=== PATIENT | male | born 1995 | race Caucasian/White ===

== ENCOUNTER 2017-01-17 11:39 | Emergency (ER) | payer OTHER ==
[~2017-01-17] VITALS: Ht 177.8 cm; Wt 71.3 kg
[2017-01-17 11:40] VITALS: TEMP 37; Ht 177.8 cm; Wt 71.3 kg
[2017-01-17 12:46] LABS: BASO % 0.6 %; BASO ABS # 0.03 K/uL (0-0.2); COMPLETE YES; EOS % 5.9 %; HEMATOCRIT 40.1 % (42-52); IG% 0.2 %; LYMPH % 28.9 %; LYMPH ABS # 1.51 K/uL (1.2-3.4); MEAN CELL VOLUME 89.7 fL (80-100); MEAN CORPUSCULAR HEMOGLOBIN 31.5 pg (25-34); MEAN CORPUSCULAR HGB CONC 35.2 g/dl (32-36); MEAN PLATELET VOLUME 9.3 fL (7.4-10.4); MONO % 6.3 %; NEUT % 58.1 %; PLATELET COUNT 228 K/uL (130-400); RED BLOOD COUNT 4.47 M/uL (4.7-6.1); WHITE BLOOD COUNT 5.23 K/uL (4.8-10.8)
--- NOTE | 2017-01-17 12:48 | EMERGENCY ROOM VISIT NOTE ---
History Report prepared by Rebekah: Garrett Chan Under the Supervision of: Dr. Eric Elizabeth M.D. First contact with patient: 12:35 Chief Complaint: MENTAL HEALTH EVALUATION Stated Complaint: DEPRESSION History of Present Illness The patient is a 21 year old male who presents to the Emergency Room with complaints of worsening depression that started a few weeks ago. He says that he has been chronically depressed for a couple years, and he has just gotten used to it. The patient went to see a therapist once, but he stopped going. He says he is not on any daily medications. The patient states that he has been self-harming for a couple years. He cuts his arms, and punches himself. He punches his arms, and sometimes his thighs. The patient says that he hit a low point at the end of last week, and decided to call [facility], and went in this morning. He was then referred here for an evaluation. The patient notes that he has had a lack of appetite recently. He has has intermittent suicidal thoughts for a while, but does not act on them. His thoughts include running into traffic. The patient says that school has been stressful recently, with lots of exams. He has never overdosed before. The patient does not use any illicit drugs , he does not drink alcohol, and he does not use any tobacco products. He denies any current abdominal pain. He says that his sleep has been fine. The patient has no major medical problems. Source of History: patient Onset: A few weeks ago Position: other (depressive symptoms) Timing: worsening Associated Symptoms: No abdominal pain Note: Associated symptoms: Suicidal thoughts, but does not act on them. Reduced appetite recently. Review of Systems See HPI for pertinent positives & negatives. A total of 10 systems reviewed and were otherwise negative. Past Medical & Surgical Medical Problems: (1) Depressed (2) Mononucleosis (3) Self-harming behavior Old medical records were attempted to be reviewed but there are no old records at this hospital. Nurse's notes were reviewed and I agree with. Family History No pertinent family history Social History Smoking Status: Never Smoker Alcohol Use: none Drug Use: none Marital Status: single Housing Status: lives with roommate Occupation Status: [employer] student Current/Historical Medications No Active Prescriptions or Reported Meds Allergies Coded Allergies: No Known Allergies (Unverified , 01/17/17) Physical Exam Vital Signs Date Time Temp Pulse Resp B/P Pulse Ox O2 Delivery O2 Flow Rate FiO2 01/17/17 16:32 78 15 118/63 99 Room Air 01/17/17 15:12 80 14 108/62 98 Room Air 01/17/17 13:49 85 14 110/62 98 Room Air 01/17/17 11:40 37.0 70 20 152/84 97 Room Air Physical Exam General: Well developed well nourished non ill appearing young male in no acute distress, breathing comfortably on room air. Alert and oriented x3. Normal speech HEENT: Normal cephalic atraumatic. Pupils are equal round and reactive to light. Extraocular movements are intact. Oropharynx is pink with moist mucous membranes. No swelling of the mouth lips or tongue. Neck: Supple with a midline trachea. No meningeal signs or stiffness, no JVD or bruits. No Stridor. Chest: Clear to auscultation bilaterally. No wheezes or rhonchi. No increased work of breathing. Heart: regular rate and rhythm. Abdomen: Soft nontender, nondistended without rebound guarding or rigidity. Extremities: No cyanosis clubbing or edema. No calf tenderness or assymetry Spine/Back. Non tender to palpation. No CVA tenderness Skin: Good turgor without rashes. Neurologic exam: Cranial nerves two through 12 are intact. Motor and sensation are intact and symmetrical throughout. Psych: Normal thought process and affect. Denies suicidal ideation at present. Has fleeting thoughts of hurting himself. No homicidal ideation. Medical Decision & Procedures Laboratory Results 01/17/17 12:30 Red Blood Count 4.47, Mean Corpuscular Volume 89.7, Mean Corpuscular Hemoglobin 31.5, Mean Corpuscular Hemoglobin Concent 35.2, Mean Platelet Volume 9.3, Neutrophils (%) (Auto) 58.1, Lymphocytes (%) (Auto) 28.9, Monocytes (%) (Auto) 6.3, Eosinophils (%) (Auto) 5.9, Basophils (%) (Auto) 0.6, Neutrophils # (Auto) 3.04, Lymphocytes # (Auto) 1.51, Monocytes # (Auto) 0.33, Eosinophils # (Auto) 0.31, Basophils # (Auto) 0.03 01/17/17 12:30 Test 01/17/17 11:50 01/17/17 12:30 Urine Color YELLOW Urine Appearance CLEAR (CLEAR) Urine pH 7.0 (4.5-7.5) Urine Specific Higgins 1.012 (1.000-1.030) Urine Protein NEG (NEG) Urine Glucose (UA) NEG (NEG) Urine Ketones NEG (NEG) Urine Occult Blood NEG (NEG) Urine Nitrite NEG (NEG) Urine Bilirubin NEG (NEG) Urine Urobilinogen NEG (NEG) Urine Leukocyte Esterase NEG (NEG) Urine Opiates Screen NEG (NEG) Urine Methadone, Qualitative NEG (NEG) Urine Barbiturates NEG (NEG) Urine Phencyclidine (PCP) Level NEG (NEG) Ur Amphetamine/Methamphetamine NEG (NEG) MDMA (Ecstasy) Screen NEG (NEG) Urine Benzodiazepines Screen NEG (NEG) Urine Cocaine Metabolite NEG (NEG) Urine Marijuana (THC) NEG (NEG) White Blood Count 5.23 K/uL (4.8-10.8) Red Blood Count 4.47 M/uL (4.7-6.1) Hemoglobin 14.1 g/dL (14.0-18.0) Hematocrit 40.1 % (42-52) Mean Corpuscular Volume 89.7 fL (80-100) Mean Corpuscular Hemoglobin 31.5 pg (25-34) Mean Corpuscular Hemoglobin Concent 35.2 g/dl (32-36) Platelet Count 228 K/uL (130-400) Mean Platelet Volume 9.3 fL (7.4-10.4) Neutrophils (%) (Auto) 58.1 % Lymphocytes (%) (Auto) 28.9 % Monocytes (%) (Auto) 6.3 % Eosinophils (%) (Auto) 5.9 % Basophils (%) (Auto) 0.6 % Neutrophils # (Auto) 3.04 K/uL (1.4-6.5) Lymphocytes # (Auto) 1.51 K/uL (1.2-3.4) Monocytes # (Auto) 0.33 K/uL (0.11-0.59) Eosinophils # (Auto) 0.31 K/uL (0-0.5) Basophils # (Auto) 0.03 K/uL (0-0.2) RDW Standard Deviation 40.3 fL (36.4-46.3) RDW Coefficient of Variation 12.3 % (11.5-14.5) Immature Granulocyte % (Auto) 0.2 % Immature Granulocyte # (Auto) 0.01 K/uL (0.00-0.02) Anion Gap 3.0 mmol/L (3-11) Est Creatinine Clear Calc Drug Dose 126.1 ml/min Estimated GFR () 134.0 Estimated GFR (Non- 115.6 BUN/Creatinine Ratio 11.6 (10-20) Calcium Level 8.9 mg/dl (8.5-10.1) Total Bilirubin 0.7 mg/dl (0.2-1) Aspartate Amino Transf (AST/SGOT) 12 U/L (15-37) Alanine Aminotransferase (ALT/SGPT) 21 U/L (12-78) Alkaline Phosphatase 101 U/L (45-117) Total Protein 7.5 gm/dl (6.4-8.2) Albumin 4.2 gm/dl (3.4-5.0) Globulin 3.3 gm/dl (2.5-4.0) Albumin/Globulin Ratio 1.3 (0.9-2) Thyroid Stimulating Hormone (TSH) 0.889 uIu/ml (0.300-4.500) Ethyl Alcohol mg/dL < 3.0 mg/dl (0-3) Laboratory studies as stated above per my review. ED Course 1235: Past medical records reviewed. The patient was evaluated in room A7, and a complete history and physical examination were performed. 1415: I talked to the psychiatric vocational case manager and she is going to see the patient. 1526: The psychiatric vocational case manager informed me that the patient will be transferred to the [facility] for mental health acute care. The patient verbally expressed understanding and agreement with this plan. Medical Decision Differentials include, but are not limited to; depression, anxiety, electrolyte or metabolic abnormality. This patient comes in as described above. He was placed in room A7. Here for treatment and evaluation of depression. He has had fleeting thoughts of harming himself at times. He has not tried to hurt himself except for punching his arms and cutting himself. He has no significant injuries on exam. He is very cooperative. Multiple blood work and urine was obtained for medical clearance he has no acute electrode or metabolic abnormalities. He has nothing to suggest infection or anemia or toxicologic process. He is medically cleared. He was seen in via by Gwen, our psychiatric vocational case manager. He was placed voluntarily inpatient at the [facility] for further inpatient treatment and evaluation and safety. Impression Primary Impression: Depression Additional Impression: Suicidal ideation Scribe Attestation The scribe's documentation has been prepared under my direction and personally reviewed by me in its entirety. I confirm that the note above accurately reflects all work, treatment, procedures, and medical decision making performed by me. Departure Information Dispostion Mental Health Acute Care (transfer to [facility]) Prescriptions No Active Prescriptions or Reported Meds Referrals No Doctor, Assigned (PCP) Patient Instructions [facility] Problem Qualifiers
[2017-01-17 13:04] LABS: URINE APPEARANCE CLEAR (CLEAR); URINE BILIRUBIN NEG (NEG); URINE COLOR YELLOW; URINE NITRITE NEG (NEG); URINE SPECIFIC GRAVITY 1.012 (1.000-1.030); UROBILINOGEN NEG (NEG); ZZUR CULT IF INDIC CLEAN CATCH NO
[2017-01-17 13:09] LABS: MANUAL MICROSCOPIC REQUIRED? NO; REVIEW REQ? NO
[2017-01-17 13:09] LABS: BUN/CREATININE RATIO 11.6 (10-20); CALCIUM 8.9 mg/dl (8.5-10.1); CREATININE 0.95 mg/dl (0.60-1.40); POTASSIUM 4.2 mmol/L (3.5-5.1)
[2017-01-17 13:13] LABS: BENZODIAZEPINE, URINE NEG (NEG); COCAINE,URINE NEG (NEG); PHENCYCLIDINE, URINE NEG (NEG)
[2017-01-17 13:19] LABS: ALB/GLOB RATIO 1.3 (0.9-2); THYROID STIMULATING HORMONE 0.889 uIu/ml (0.300-4.500)
[2017-01-17 16:32] VITALS: BP 118/63; PULSE 78; O2SAT 99
== END 2017-01-17 16:34 ==
LOC: C.EDB 11:41 → C.EDA 16:34
DX: F32.9 Major depressive disorder, single episode, unspecified (principal); R45.851 Suicidal ideations; Z86.19 Personal history of other infectious and parasitic diseases; Z91.5 Personal history of self-harm